=== PATIENT | male | born 1995 | race Caucasian/White ===

== ENCOUNTER 2021-12-16 18:29 | Emergency (ER) | payer BC ==
[2021-12-16] MEDS ORDERED: Diphtheria,Pertussis(Acell),Tetanus Vaccine 0.5 ML Syringe IM ONE (18:55)
[2021-12-16] MEDS ORDERED: Lidocaine 1% 10 ML MDV INJECT ONE (18:56)
== END 2021-12-16 20:02 | disposition home or self-care (01) ==
LOC: JD.ED 18:29
DX: S51.012A Laceration without foreign body of left elbow, initial encounter (principal); Z23 Encounter for immunization; W26.0XXA Contact with knife, initial encounter
CPT/HCPCS: 12001; 90471; 90715; 99282-25; 99283